=== PATIENT | female | born 1975 | race Caucasian/White ===

== ENCOUNTER 2025-02-07 07:44 | Emergency (ER) | payer MEDICAID ==
[~2025-02-07] VITALS: Ht 160 cm; Wt 79.0 kg
[2025-02-07] VITALS (9 sets, daily range): BP systolic 50–162; BP diastolic 33–95
[~2025-02-07 07:44] MED LIST: ABILIFY10 MG PO; ABILIFY15 MG PO; AMLODIPINE BESYL5 MG PO; AMOXIL500 MG OR; AZITHROMYCIN500 MG PO; BUSPAR15 M1 PO; CIPROFLOXACN250 MG PO; CLINDAMYCIN HY300 MG PO; KLONOPIN0.5 MG PO; MOXIFLOXACIN H400 MG PO; NEXIUM40 M1 PO; PERCOCET 5/325M1 TAB PO; PRE-NATAL OR; PRENATAL MULTI1 CAP PO; PROMETHAZINE25 MG RE; RISPERIDONE3 M1 PO; TRAZODONE50 MG PO; VENLAFAXINE H37.5 M1 PO
[2025-02-07] MEDS ORDERED: ONDANSETRON HCl 4 MG/2 ML SDV IV ONE (08:00)
[2025-02-07] MEDS ORDERED: KETOROLAC TROMETHAMINE 30 MG/ML SDV IV ONE (08:00)
[2025-02-07 08:20] LABS: BASO% 0.5 % (0-3); EOS% 1.1 % (0-8); HEMATOCRIT 43.2 % (37.0-47.0); IMMATURE GRANULOCYTES 0.1 % (0.0-5.0); LYMPH% 27.5 % (15-41); MEAN CELL VOLUME 95.2 fL CALC (80.0-100.0); MEAN CORPUSCULAR HGB 31.1 pG CALC (26.0-32.0); MEAN CORPUSCULAR HGB CONC 32.6 g/dL CAL (32.0-36.0); MONO% 7.1 % (2-13); NEUT# 7.41 thou/uL (2.00-7.15); NEUT% 63.7 % (42-76); RED BLOOD COUNT 4.54 mill/uL (4.20-5.60); RED CELL DISTRI WIDTH 12.8 % (11.5-15.5)
[2025-02-07 08:32] LABS: HEMOGLOBIN 14.1 g/dl (12.0-16.0)
[2025-02-07 08:42] LABS: BILIRUBIN, TOTAL 0.5 mg/dL (0.02-1.3); CREATININE 0.9 mg/dL (0.5-1.0); POTASSIUM 4.2 mmol/l (3.5-5.1)
[2025-02-07 09:08] LABS: URINE BILIRUBIN - DIPSTICK Negative (NEGATIVE); URINE BLOOD DIPSTICK Moderate (NEGATIVE); URINE GLUCOSE - DIPSTICK Negative (NEGATIVE); URINE KETONE Negative (NEGATIVE); URINE LEUK ESTERASE Negative (NEGATIVE); URINE PH 5.5 (4.5-8.0); URINE PROTEIN - DIPSTICK 30 mg/dL (NEG-TRACE); URINE SPECIFIC GRAVITY 1.025; URINE UROBILINOGEN - DIPSTICK 0.2 E.U./dL (0.2)
[2025-02-07 09:35] LABS: URINE COLOR Yellow; URINE EPITHELIAL CELLS MANY EPI/hpf (0-FEW); URINE NITRITE - DIPSTICK Positive (Negative); URINE RBC 25-50 RBC/hpf (0-5)
[2025-02-07 09:36] LABS: URINE BACTERIA MANY hpf; URINE MUCUS MANY hpf (NONE-FEW)
[2025-02-07] MEDS ORDERED: ALUM & MAG HYDROX-SIMETHICONE 30 ML PO ONE (10:00)
[2025-02-07] MEDS ORDERED: LIDOCAINE VISCOUS 2% 15 ML UDC PO ONE (10:00)
[2025-02-07] MEDS ORDERED: PROTONIX40 M2 PO (11:43)
[2025-02-07] MEDS ORDERED: BACTRIM DS1 TAB PO (11:59)
== END 2025-02-07 12:05 | disposition home or self-care (01) ==
LOC: ED 07:44
PROVIDERS: Family Medicine
DX: R10.11 Right upper quadrant pain (principal); F41.9 Anxiety disorder, unspecified; F32.A Depression, unspecified; F17.210 Nicotine dependence, cigarettes, uncomplicated; Z90.49 Acquired absence of other specified parts of digestive tract
CPT/HCPCS: J2405; Q9967